=== PATIENT | male | born 1980 | race Caucasian/White ===

== ENCOUNTER 2022-09-06 12:51 | Inpatient (IN) | payer OTHER ==
[2022-09-06 13:09] VITALS: BMI 31.5
[2022-09-06] MEDS ORDERED: TRIMETHOBENZAMIDE HCL 200MG/2ML INJ IM ONE (13:32)
[2022-09-06] MEDS ORDERED: MAG HYDROX/AL HYDROX/SIMETH -MYLANTA- ORAL SUSPENSION PO ONE (13:42)
[2022-09-06] MEDS ORDERED: FAMOTIDINE 20 MG TABLET PO ONE (13:42)
[2022-09-06] MEDS ORDERED: SUCRALFATE 1 GM TABLET (FP) PO ONE (13:48)
[2022-09-06] MEDS ORDERED: FAMOTIDINE 20 MG TABLET ONE (13:58)
[2022-09-06] MEDS ORDERED: SUCRALFATE 1 GM TABLET (FP) ONE (13:59)
[2022-09-06] MEDS ORDERED: MAG HYDROX/AL HYDROX/SIMETH 30 ML UNIT-DOSE CUP ONE (13:59)
[2022-09-06 14:36] LABS: HEMATOCRIT 55.2 % (35.4-49); HEMOGLOBIN 18.8 GM/dL (11.7-16.9); MCH 30.1 pg (25.7-33.7); MCHC 34.1 g/dl (32.0-35.9); MEAN CELL VOLUME 88.2 fl (80-96); MEAN PLT VOLUME 8.4 fl (7.5-11.1); PLATELET COUNT 250 10^3/uL (134-434); RBC 6.26 M/mm3 (4.00-5.60); RDW 13.1 % (11.9-15.9)
[2022-09-06 14:53] LABS: CALCIUM 9.6 mg/dL (8.5-10.1)
[2022-09-06 14:54] LABS: ALBUMIN 4.1 g/dl (3.4-5.0); BLOOD UREA NITROGEN 11.8 mg/dL (7-18)
[2022-09-06 14:57] LABS: CREATININE 1.2 mg/dL (0.55-1.3)
[2022-09-06 14:58] LABS: BILIRUBIN,TOTAL 1.3 mg/dL (0.2-1); TOT PROT 7.9 g/dl (6.4-8.2)
[2022-09-06 15:12] LABS: EPI CELLS 5 /uL (0-25.1); HYALINE CASTS 0 /uL (0-3.1); URINE APPEARANCE CLEAR; URINE BACTERIA 2 /uL (0-1359); URINE BILIRUBIN NEGATIVE (NEGATIVE); URINE COLOR YELLOW; URINE GLUCOSE (UA) 3+ (NEGATIVE); URINE KETONE 3+ (NEGATIVE); URINE LEUK ESTERASE NEGATIVE (NEGATIVE); URINE NITRITE NEGATIVE (NEGATIVE); URINE PROTEIN 1+ (NEGATIVE); URINE RBC 13 /uL (0-23.9); URINE UROBILINOGEN 0.2 mg/dL (0.2-1.0); URINE WBC 3 /uL (0-25.8)
[2022-09-06] MEDS ORDERED: SODIUM CHLORIDE 0.9% 500 ML INFUS.BAG IV ONE (15:13)
[2022-09-06 15:48] LABS: VENOUS BASE EXCESS -0.8 mmol/L (-2-2); VENOUS O2 SATURATION 74.8 % (70-80); VENOUS PCO2 28.4 mmHg (38-52); VENOUS PH 7.481 (7.310-7.410)
[2022-09-06] MEDS ORDERED: morphine SULFATE 4 MG/ML VIAL IVPUSH ONE (16:32)
[2022-09-06] MEDS ORDERED: morphine SULFATE 4 MG/ML VIAL ONE (16:40)
[2022-09-06] MEDS ORDERED: LACTATED RINGERS SOLUTION 1,000 ML IV SCH (18:15)
[2022-09-06] MEDS ORDERED: amLODIPine BESYLATE 5 MG TABLET (FP) PO ONE ×2 (19:12)
[2022-09-06] MEDS ORDERED: amLODIPine BESYLATE 10 MG TABLET (FP) ONE (19:43)
[2022-09-06] MEDS: LACTATED RINGERS SOLUTION 1,000 ML IV SCH (20:03)
[2022-09-06] MEDS ORDERED: ACETAMINOPHEN INJECTION 100 ML IVPB ONE (22:35)
[2022-09-06] MEDS ORDERED: THIAMINE HCL 200 MG/2 ML VIAL ONE (22:35)
[2022-09-06] MEDS ORDERED: FOLIC ACID 1 MG TABLET (FP) ONE (22:35)
[2022-09-06] MEDS: ACETAMINOPHEN 1000 MG/100 ML BAG IVPB PRN (22:42)
[2022-09-06] MEDS: THIAMINE HCL 200 MG/2 ML VIAL IVPB SCH (22:42)
[2022-09-06] MEDS: FOLIC ACID 1 MG TABLET (FP) PO SCH (22:42)
[2022-09-06] MEDS: INSULIN SLIDING SCALE (NOVOLOG) 1 VIAL SQ SCH (22:46)
[2022-09-06] MEDS ORDERED: INSULIN (NOVOLOG) ASPART 100 UNITS/ML 10ML VIAL ONE (22:47)
[2022-09-07 07:33] LABS: BASO % 0.8 % (0-2.0); HEMATOCRIT 50.4 % (35.4-49); HEMOGLOBIN 16.8 GM/dL (11.7-16.9); LYMPH % 6.6 % (8-40); MCH 29.7 pg (25.7-33.7); MCHC 33.3 g/dl (32.0-35.9); MEAN CELL VOLUME 89.2 fl (80-96); MEAN PLT VOLUME 8.9 fl (7.5-11.1); MONO % 8.7 % (3.8-10.2); NEUT % 83.9 % (42.8-82.8); PLATELET COUNT 210 10^3/uL (134-434); RBC 5.65 M/mm3 (4.00-5.60); RDW 13.1 % (11.9-15.9); WHITE BLOOD COUNT 17.9 K/mm3 (4.0-10.0)
[2022-09-07 08:12] LABS: CALCIUM 8.6 mg/dL (8.5-10.1)
[2022-09-07 08:13] LABS: ALBUMIN 3.6 g/dl (3.4-5.0); MAGNESIUM 1.8 mg/dL (1.8-2.4)
[2022-09-07 08:16] LABS: CREATININE 0.9 mg/dL (0.55-1.3); PHOSPHOROUS 2.9 mg/dL (2.5-4.9)
[2022-09-07] MEDS ORDERED: INSULIN (NOVOLOG) ASPART 100 UNITS/ML 10ML VIAL ONE (08:50)
[2022-09-07] MEDS: INSULIN SLIDING SCALE (NOVOLOG) 1 VIAL SQ SCH ×4 (09:01→22:47)
[2022-09-07] MEDS ORDERED: ENOXAPARIN NA (PORCINE) 40 MG/0.4 ML DISP.SYRIN SQ ONE (09:55)
[2022-09-07] MEDS ORDERED: amLODIPine BESYLATE 10 MG TABLET (FP) ONE (09:55)
[2022-09-07] MEDS ORDERED: FOLIC ACID 1 MG TABLET (FP) ONE (09:55)
[2022-09-07] MEDS ORDERED: THIAMINE HCL 200 MG/2 ML VIAL ONE (09:56)
[2022-09-07] MEDS: LACTATED RINGERS SOLUTION 1,000 ML IV SCH (10:53)
[2022-09-07] MEDS: THIAMINE HCL 200 MG/2 ML VIAL IVPB SCH (11:26)
[2022-09-07] MEDS: amLODIPine BESYLATE 10 MG TABLET (FP) PO SCH (11:26)
[2022-09-07] MEDS: ENOXAPARIN NA (PORCINE) 40 MG/0.4 ML DISP.SYRIN SQ SCH (11:26)
[2022-09-07] MEDS: FOLIC ACID 1 MG TABLET (FP) PO SCH (11:26)
[2022-09-07] MEDS ORDERED: ACETAMINOPHEN INJECTION 100 ML IVPB ONE ×2 (13:44→20:31)
[2022-09-07] MEDS: ACETAMINOPHEN 1000 MG/100 ML BAG IVPB PRN ×2 (13:45→21:00)
[2022-09-08] MEDS: LACTATED RINGERS SOLUTION 1,000 ML IV SCH (02:11)
[2022-09-08] MEDS: INSULIN SLIDING SCALE (NOVOLOG) 1 VIAL SQ SCH ×4 (06:03→21:31)
[2022-09-08 11:00] LABS: HEMATOCRIT 44.7 % (35.4-49); HEMOGLOBIN 14.9 GM/dL (11.7-16.9); MCH 29.7 pg (25.7-33.7); MCHC 33.2 g/dl (32.0-35.9); MEAN CELL VOLUME 89.3 fl (80-96); MEAN PLT VOLUME 8.5 fl (7.5-11.1); PLATELET COUNT 172 10^3/uL (134-434); RDW 13.2 % (11.9-15.9)
[2022-09-08 11:34] LABS: ANISOCYTOSIS 0; HELMET CELLS 0; HOWELL-JOLLY BODIES 0; MACROCYTOSIS 0; OVALOCYTE 0; ROULEAU 0; SICKELED CELLS 0; TARGET CELLS 0; TEAR DROP CELLS 0; TOXIC GRANULATION 0
[2022-09-08 11:35] LABS: CALCIUM 8.2 mg/dL (8.5-10.1)
[2022-09-08 11:36] LABS: BLOOD UREA NITROGEN 9.8 mg/dL (7-18); MAGNESIUM 2.1 mg/dL (1.8-2.4)
[2022-09-08 11:38] LABS: BILIRUBIN,DIRECT 0.3 mg/dL (0.0-0.2); CREATININE 0.9 mg/dL (0.55-1.3)
[2022-09-08 11:39] LABS: PHOSPHOROUS 2.1 mg/dL (2.5-4.9)
[2022-09-08 11:40] LABS: BILIRUBIN,TOTAL 0.9 mg/dL (0.2-1); TOT PROT 6.2 g/dl (6.4-8.2)
[2022-09-08] MEDS: amLODIPine BESYLATE 10 MG TABLET (FP) PO SCH (11:58)
[2022-09-08] MEDS: ENOXAPARIN NA (PORCINE) 40 MG/0.4 ML DISP.SYRIN SQ SCH (11:58)
[2022-09-08] MEDS: FOLIC ACID 1 MG TABLET (FP) PO SCH (11:58)
[2022-09-08] MEDS: INSULIN (LEVEMIR) 100 UNITS/ML UNITS SQ SCH (11:58)
[2022-09-08] MEDS: THIAMINE HCL 200 MG/2 ML VIAL IVPB SCH (11:59)
[2022-09-08 12:00] LABS: ALBUMIN 2.8 g/dl (3.4-5.0)
[2022-09-08] MEDS ORDERED: ACETAMINOPHEN 1000 MG/100 ML BAG IVPB PRN (14:27)
[2022-09-08] MEDS: LACTATED RINGERS SOLUTION 1,000 ML/1,000 ML INFUS.BAG IV SCH (19:02)
[2022-09-08] MEDS ORDERED: POLYETHYLENE GLYCOL (HEALTHYLAX) 3350 17 GM PACKET PO SCH (21:45)
[2022-09-09] MEDS ORDERED: LORazepam 0.5 MG TABLET PO PRN
[2022-09-09] MEDS: INSULIN SLIDING SCALE (NOVOLOG) 1 VIAL SQ SCH ×4 (06:20→22:30)
[2022-09-09] MEDS: INSULIN (LEVEMIR) 100 UNITS/ML UNITS SQ SCH (06:20)
[2022-09-09] MEDS: ENOXAPARIN NA (PORCINE) 40 MG/0.4 ML DISP.SYRIN SQ SCH (09:54)
[2022-09-09] MEDS: THIAMINE HCL 200 MG/2 ML VIAL IVPB SCH (09:54)
[2022-09-09] MEDS: FOLIC ACID 1 MG TABLET (FP) PO SCH (09:54)
[2022-09-09] MEDS: amLODIPine BESYLATE 10 MG TABLET (FP) PO SCH (09:54)
[2022-09-09] MEDS: LACTATED RINGERS SOLUTION 1,000 ML/1,000 ML INFUS.BAG IV SCH (09:57)
[2022-09-09 11:49] LABS: HEMATOCRIT 44.5 % (35.4-49); HEMOGLOBIN 15.1 GM/dL (11.7-16.9); MCH 30.1 pg (25.7-33.7); MCHC 33.8 g/dl (32.0-35.9); MEAN PLT VOLUME 8.9 fl (7.5-11.1); PLATELET COUNT 202 10^3/uL (134-434); RDW 13.2 % (11.9-15.9); WHITE BLOOD COUNT 10.7 K/mm3 (4.0-10.0)
[2022-09-09 12:24] LABS: CALCIUM 8.7 mg/dL (8.5-10.1)
[2022-09-09 12:25] LABS: MAGNESIUM 2.2 mg/dL (1.8-2.4)
[2022-09-09 12:26] LABS: BLOOD UREA NITROGEN 9.2 mg/dL (7-18); CREATININE 0.9 mg/dL (0.55-1.3)
[2022-09-09 12:27] LABS: ALBUMIN 2.8 g/dl (3.4-5.0)
[2022-09-09 12:28] LABS: TOT PROT 6.7 g/dl (6.4-8.2)
[2022-09-09 12:30] LABS: PHOSPHOROUS 2.2 mg/dL (2.5-4.9)
[2022-09-09 12:31] LABS: BILIRUBIN,TOTAL 0.8 mg/dL (0.2-1)
[2022-09-09] MEDS: DOXYCYCLINE HYCLATE 100 MG CAPSULE PO SCH (15:25)
[2022-09-09] MEDS: CEFTRIAXONE 1 GM in DEXTROSE 5%-WATER - 50 ML IVPB SCH (15:26)
[2022-09-09] MEDS ORDERED: NAPH,MB-DB/K PH,MBDB POWDER PACKET PO ONE (17:34)
[2022-09-09] MEDS ORDERED: ATORVASTATIN CA 40 MG TABLET (FP) PO SCH (22:00)
[2022-09-09] MEDS ORDERED: INSULIN (LEVEMIR) 100 UNITS/ML UNITS SQ SCH (22:00)
[2022-09-10] MEDS: INSULIN SLIDING SCALE (NOVOLOG) 1 VIAL SQ SCH ×3 (06:19→17:36)
[2022-09-10] MEDS ORDERED: INSULIN (LEVEMIR) 100 UNITS/ML UNITS SQ SCH (07:00)
[2022-09-10 09:19] LABS: HEMOGLOBIN 14.8 GM/dL (11.7-16.9); MCH 29.5 pg (25.7-33.7); MCHC 33.5 g/dl (32.0-35.9); MEAN CELL VOLUME 88.1 fl (80-96); MEAN PLT VOLUME 8.3 fl (7.5-11.1); PLATELET COUNT 249 10^3/uL (134-434); RDW 12.7 % (11.9-15.9); WHITE BLOOD COUNT 7.4 K/mm3 (4.0-10.0)
[2022-09-10 09:40] LABS: CALCIUM 8.6 mg/dL (8.5-10.1)
[2022-09-10 09:41] LABS: ALBUMIN 2.7 g/dl (3.4-5.0); BLOOD UREA NITROGEN 11.3 mg/dL (7-18)
[2022-09-10 09:43] LABS: PHOSPHOROUS 3.1 mg/dL (2.5-4.9)
[2022-09-10 09:44] LABS: CREATININE 0.7 mg/dL (0.55-1.3)
[2022-09-10 09:45] LABS: BILIRUBIN,TOTAL 0.7 mg/dL (0.2-1); TOT PROT 6.6 g/dl (6.4-8.2)
[2022-09-10] MEDS ORDERED: LOSARTAN POTASSIUM 25 MG TABLET PO SCH (10:00)
[2022-09-10] MEDS: amLODIPine BESYLATE 10 MG TABLET (FP) PO SCH (10:15)
[2022-09-10] MEDS: DOXYCYCLINE HYCLATE 100 MG CAPSULE PO SCH (10:16)
[2022-09-10] MEDS: CEFTRIAXONE 1 GM in DEXTROSE 5%-WATER - 50 ML IVPB SCH (10:16)
[2022-09-10] MEDS: FOLIC ACID 1 MG TABLET (FP) PO SCH (10:16)
[2022-09-10] MEDS: ENOXAPARIN NA (PORCINE) 40 MG/0.4 ML DISP.SYRIN SQ SCH (10:16)
[2022-09-10] MEDS ORDERED: TRIMETHOBENZAMIDE HCL 200MG/2ML INJ IM ONE (10:49)
[2022-09-10] MEDS: THIAMINE HCL 200 MG/2 ML VIAL IVPB SCH (12:50)
[2022-09-10 16:04] VITALS: RESP 18
[2022-09-10 18:11] VITALS: BP 127/86; PULSE 85; TEMP 98.3
== END 2022-09-10 19:03 | disposition home or self-care (01) | DRG 282 ==
LOC: JER 12:51 → JERBED 19:39 → J5S 09-07 23:00
PROVIDERS: ADMIT Internal Medicine; ATTEND Internal Medicine
DX: K85.20 Alcohol induced acute pancreatitis without necrosis or infection (principal); J18.9 Pneumonia, unspecified organism; F10.10 Alcohol abuse, uncomplicated; E11.9 Type 2 diabetes mellitus without complications; I10 Essential (primary) hypertension; D72.829 Elevated white blood cell count, unspecified; E78.5 Hyperlipidemia, unspecified
CPT/HCPCS: 0241U-QW; 36415; 71046-TC-FY; 74177-TC; 76705-TC; 80048; 80053; 80061; 80076; 81003; 82803; 82962; 83036; 83690; 83735; 84100; 84478; 84484; 85025; 85027; 87040; 93005; 93010; 94010; 99285-25; C9803-CS; Q9967; U0003; U0005

== ENCOUNTER 2023-08-15 14:09 | Inpatient (IN) | payer BC, OTHER ==
[2023-08-15] MEDS ORDERED: SODIUM CHLORIDE 0.9% 500 ML INFUS.BAG IV ONE ×2 (14:36→15:31)
[2023-08-15] MEDS ORDERED: morphine CARPU-JECT 2 MG/1 ML DISP.SYRIN IVPUSH ONE ×2 (14:37→15:31)
[2023-08-15] MEDS ORDERED: ONDANSETRON 4 MG/2 ML VIAL IVPUSH ONE (14:38)
[2023-08-15] MEDS ORDERED: ONDANSETRON 4 MG/2 ML VIAL ONE ×2 (14:47→16:15)
[2023-08-15] MEDS ORDERED: morphine SULFATE 4 MG/ML VIAL ONE ×2 (14:49→16:16)
[2023-08-15 15:43] LABS: BASO % 0.4 % (0-2.0); EOS % 0.1 % (0-4.5); HEMATOCRIT 50.2 % (35.4-49); HEMOGLOBIN 16.6 GM/dL (11.7-16.9); LYMPH % 9.9 % (8-40); MCH 29.3 pg (25.7-33.7); MCHC 33.1 g/dl (32.0-35.9); MEAN CELL VOLUME 88.3 fl (80-96); MONO % 6.8 % (3.8-10.2); NEUT % 82.8 % (42.8-82.8); PLATELET COUNT 341 10^3/uL (134-434); RBC 5.69 M/mm3 (4.00-5.60); RDW 13.3 % (11.9-15.9); WHITE BLOOD COUNT 19.4 K/mm3 (4.0-10.0)
[2023-08-15 16:12] VITALS: RESP 18
[2023-08-15 16:29] LABS: CALCIUM 9.6 mg/dL (8.5-10.1)
[2023-08-15 16:30] LABS: BLOOD UREA NITROGEN 14.9 mg/dL (7-18)
[2023-08-15 16:32] LABS: CREATININE 1.1 mg/dL (0.55-1.3)
[2023-08-15 16:34] LABS: BILIRUBIN,TOTAL 0.6 mg/dL (0.2-1); TOT PROT 8.3 g/dl (6.4-8.2)
[2023-08-15] MEDS ORDERED: ONDANSETRON 4 MG/2 ML VIAL IVPUSH PRN (17:49)
[2023-08-15] MEDS ORDERED: ACETAMINOPHEN 1000 MG/100 ML BAG IVPB ONE (17:55)
[2023-08-15] MEDS ORDERED: LACTATED RINGERS SOLUTION 1,000 ML/1,000 ML INFUS.BAG IV SCH (18:00)
[2023-08-15] MEDS ORDERED: ACETAMINOPHEN INJECTION 100 ML IVPB ONE (18:26)
[2023-08-15] MEDS: INSULIN SLIDING SCALE (NOVOLOG) 1 VIAL SQ SCH (22:16)
[2023-08-15] MEDS ORDERED: morphine SULFATE 4 MG/ML VIAL IVPUSH PRN (23:23)
[2023-08-15] MEDS ORDERED: INSULIN (LEVEMIR) 100 UNITS/ML UNITS SQ ONE (23:45)
[2023-08-16 02:49] VITALS: BMI 32.1
[2023-08-16] MEDS: INSULIN SLIDING SCALE (NOVOLOG) 1 VIAL SQ SCH ×4 (07:31→21:52)
[2023-08-16 09:41] LABS: HEMATOCRIT 45.2 % (35.4-49); HEMOGLOBIN 15.2 GM/dL (11.7-16.9); MCH 29.3 pg (25.7-33.7); MCHC 33.6 g/dl (32.0-35.9); PLATELET COUNT 264 10^3/uL (134-434); RDW 13.5 % (11.9-15.9); WHITE BLOOD COUNT 14.8 K/mm3 (4.0-10.0)
[2023-08-16] MEDS: ENOXAPARIN NA (PORCINE) 40 MG/0.4 ML DISP.SYRIN SQ SCH (09:59)
[2023-08-16 10:38] LABS: ALBUMIN 3.4 g/dl (3.4-5.0); BILIRUBIN,TOTAL 0.7 mg/dL (0.2-1); BLOOD UREA NITROGEN 14.5 mg/dL (7-18); CALCIUM 8.5 mg/dL (8.5-10.1); CREATININE 0.9 mg/dL (0.55-1.3); MAGNESIUM 2.1 mg/dL (1.8-2.4); PHOSPHOROUS 3.2 mg/dL (2.5-4.9); TOT PROT 6.9 g/dl (6.4-8.2)
[2023-08-16] MEDS ORDERED: LACTATED RINGERS SOLUTION 1,000 ML/1,000 ML INFUS.BAG IV SCH (16:38)
[2023-08-16] MEDS ORDERED: INSULIN (LEVEMIR) 100 UNITS/ML UNITS SQ SCH ×2 (22:00)
[2023-08-17] MEDS: INSULIN SLIDING SCALE (NOVOLOG) 1 VIAL SQ SCH ×3 (06:35→17:11)
[2023-08-17 08:26] LABS: BASO % 0.4 % (0-2.0); EOS % 1.6 % (0-4.5); HEMATOCRIT 42.2 % (35.4-49); HEMOGLOBIN 13.9 GM/dL (11.7-16.9); MCH 28.9 pg (25.7-33.7); MEAN CELL VOLUME 87.7 fl (80-96); MONO % 6.7 % (3.8-10.2); NEUT % 77.3 % (42.8-82.8); PLATELET COUNT 221 10^3/uL (134-434); RBC 4.82 M/mm3 (4.00-5.60); WHITE BLOOD COUNT 12.3 K/mm3 (4.0-10.0)
[2023-08-17 08:42] LABS: POTASSIUM 3.8 mmol/L (3.5-5.1)
[2023-08-17 08:52] LABS: BILIRUBIN,TOTAL 0.8 mg/dL (0.2-1); PHOSPHOROUS 2.2 mg/dL (2.5-4.9)
[2023-08-17 08:53] LABS: CREATININE 0.7 mg/dL (0.55-1.3)
[2023-08-17 08:55] LABS: CALCIUM 8.7 mg/dL (8.5-10.1); MAGNESIUM 2.2 mg/dL (1.8-2.4)
[2023-08-17 09:00] LABS: TOT PROT 6.3 g/dl (6.4-8.2)
[2023-08-17 09:43] VITALS: BP 155/72; PULSE 74; TEMP 99.4
[2023-08-17] MEDS: ENOXAPARIN NA (PORCINE) 40 MG/0.4 ML DISP.SYRIN SQ SCH (10:55)
== END 2023-08-17 17:50 | disposition home or self-care (01) | DRG 440 ==
LOC: JER 14:09 → JERBED 17:52 → J6S 20:31
PROVIDERS: ADMIT Internal Medicine; ATTEND Internal Medicine
DX: K85.20 Alcohol induced acute pancreatitis without necrosis or infection (principal); I10 Essential (primary) hypertension; E11.9 Type 2 diabetes mellitus without complications; E78.5 Hyperlipidemia, unspecified; Z79.84 Long term (current) use of oral hypoglycemic drugs; F10.20 Alcohol dependence, uncomplicated; K76.0 Fatty (change of) liver, not elsewhere classified
CPT/HCPCS: 0241U-QW; 36415; 74177-TC; 76705-TC; 80053; 80061; 82150; 82962; 83036; 83615; 83690; 83735; 84100; 84484; 85025; 85027; 93005; 93010; 99285-25; Q9967